=== PATIENT | female | born 1990 | race African-American/Black ===

== ENCOUNTER 2018-05-23 06:25 | Emergency (ER) | payer BC ==
[~2018-05-23] VITALS: Ht 154.9 cm; Wt 60.3 kg
[2018-05-23] MEDS ORDERED: LIDO:MAALOX 1:1 20 ML SINGLE DOSE. ONE (06:47)
[2018-05-23] MEDS ORDERED: FAMOTIDINE 20 MG TABLET. ONE (06:48)
--- NOTE | 2018-05-23 06:52 | PHYS DOC ---
Past Medical History Past Medical History: Asthma Past Surgical History: Alcohol Use: Occasionally Drug Use: None Adult General Chief Complaint Chief Complaint: CHEST PAIN HPI HPI 27-year-old female presenting to the emergency department today with chest pain that is a mild to moderate burning and sharp pain in the substernal region that is nonradiating intermittent. It is worse when she lays down and improved when she sits up. She is not notice it being worse or better with food. No changes with exertion. She denies diabetes high blood pressure smoking or high cholesterol. The patient denies unilateral leg swelling hemoptysis family or personal history of blood clotting disorders. The pt denies recent immobilization or surgery. She does take oral contraception. Review of systems is negative for abdominal pain nausea vomiting. She reports feeling warm but did not take her temperature at that time. All other review of systems is negative unless otherwise noted in history of present illness. ED course: 27-year-old female presenting with chest pain. Vitals are unremarkable. Patient is well-appearing. EKG shows sinus rhythm with a regular rate. ST segments congruent. Not suggestive of ACS. Nonspecific T-wave inversions in the anterior lateral leads. Chest x-ray obtained along with blood work. On reexamination the patient is feeling better after receiving Pepcid and GI cocktail. Plan is to discharge.The patient has been examined and was not found to have an emergency medical condition. The patient was then discharged home in stable condition to follow up with their primary care physician over the next 2-3 days. They were to return if their symptoms worsened or if they were concerned for any reason. They were also instructed to return to the emergency department if they were unable to get the recommended and appropriate follow-up. [id number] discharge instructions and return precautions were given. Patient's questions were answered to their satisfaction. Patient is comfortable with plan. Review of Systems Review of Systems SEE ABOVE. Current Medications Current Medications Current Medications Medications (Trade) Dose Ordered Sig/Ayo Start Time Stop Time Status Last Admin Dose Admin Famotidine (Pepcid) 20 mg STK-MED ONCE 05/23/18 06:48 05/23/18 06:49 DC Info (CONTRAST GIVEN -- Rx MONITORING) 1 each PRN DAILY PRN 05/23/18 08:15 05/23/18 09:07 DC Iohexol (Omnipaque 300 Mg/ml) 90 ml 1X ONCE 05/23/18 08:15 05/23/18 08:16 DC 05/23/18 08:16 90 ML Multi-Ingredient Mouthwash/Gargle (Gi Cocktail) 20 ml STK-MED ONCE 05/23/18 06:47 05/23/18 06:49 DC Allergies Allergies Allergies Coded Allergies Type Severity Reaction Last Updated Verified No Known Drug Allergies 05/23/18 No Physical Exam Physical Exam SEE ABOVE Constitutional: Well developed, well nourished, no acute distress, non-toxic appearance. [] HENT: Normocephalic, atraumatic, bilateral external ears normal, oropharynx moist, no oral exudates, nose normal. [] Eyes: PERRLA, EOMI, conjunctiva normal, no discharge. [] Neck: Normal range of motion, no tenderness, supple, no stridor. [] Cardiovascular:Heart rate regular rhythm, no murmur [] Lungs & Thorax: Bilateral breath sounds clear to auscultation [] Abdomen: Bowel sounds normal, soft, no tenderness, no masses, no pulsatile masses. [] Skin: Warm, dry, no erythema, no rash. [] Back: No tenderness, no CVA tenderness. [] Extremities: No tenderness, no cyanosis, no clubbing, ROM intact, no edema. [] Neurologic: Alert and oriented X 3, normal motor function, normal sensory function, no focal deficits noted. [] Psychologic: Affect normal, judgement normal, mood normal. [] Current Patient Data Vital Signs Vital Signs Date Time Temp Pulse Resp B/P (MAP) Pulse Ox O2 Delivery O2 Flow Rate FiO2 05/23/18 08:36 92 158/63 (94) 99 Room Air 05/23/18 06:26 98.1 16 98.1 Lab Values Laboratory Tests Test 05/23/18 06:34 05/23/18 07:17 White Blood Count 12.6 x10^3/uL (4.0-11.0) H Red Blood Count 4.41 x10^6/uL (3.50-5.40) Hemoglobin 13.5 g/dL (12.0-15.5) Hematocrit 39.7 % (36.0-47.0) Mean Corpuscular Volume 90 fL (79-100) Mean Corpuscular Hemoglobin 31 pg (25-35) Mean Corpuscular Hemoglobin Concent 34 g/dL (31-37) Red Cell Distribution Width 13.2 % (11.5-14.5) Platelet Count 282 x10^3/uL (140-400) Neutrophils (%) (Auto) 87 % (31-73) H Lymphocytes (%) (Auto) 8 % (24-48) L Monocytes (%) (Auto) 5 % (0-9) Eosinophils (%) (Auto) 0 % (0-3) Basophils (%) (Auto) 0 % (0-3) Neutrophils # (Auto) 10.9 x10^3uL (1.8-7.7) H Lymphocytes # (Auto) 1.0 x10^3/uL (1.0-4.8) Monocytes # (Auto) 0.6 x10^3/uL (0.0-1.1) Eosinophils # (Auto) 0.0 x10^3/uL (0.0-0.7) Basophils # (Auto) 0.0 x10^3/uL (0.0-0.2) Segmented Neutrophils % 80 % (35-66) H Band Neutrophils % 13 % (0-9) H Lymphocytes % 5 % (24-48) L Monocytes % 2 % (0-10) Platelet Estimate Adequate (ADEQUATE) D-Dimer (Kaye) 1.32 ug/mlFEU (0.00-0.50) H Sodium Level 136 mmol/L (136-145) Potassium Level 3.2 mmol/L (3.5-5.1) L Chloride Level 97 mmol/L (98-107) L Carbon Dioxide Level 28 mmol/L (21-32) Anion Gap 11 (6-14) Blood Urea Nitrogen 8 mg/dL (7-20) Creatinine 0.9 mg/dL (0.6-1.0) Estimated GFR (Cockcroft-Gault) 75.1 Glucose Level 107 mg/dL (70-99) H Calcium Level 9.2 mg/dL (8.5-10.1) Troponin I Quantitative < 0.017 ng/mL (0.000-0.055) POC Urine HCG, Qualitative Hcg negative (Negative) Laboratory Tests 05/23/18 06:34 Laboratory Tests 05/23/18 06:34 EKG EKG [] Radiology/Procedures Radiology/Procedures [] Course & Med Decision Making Course & Med Decision Making Pertinent Labs and Imaging studies reviewed. (See chart for details) [] Dragon Disclaimer Dragon Disclaimer This electronic medical record was generated, in whole or in part, using a voice recognition dictation system. Departure Departure Impression: Primary Impression: Chest pain Disposition: HOME, SELF-CARE Condition: IMPROVED Patient Instructions: Chest Pain (Nonspecific) Additional Instructions: Thank you for allowing us to participate in your care today. Return to the emergency department you have any new or worsening symptoms, or if you are concerned for any reason. Return to emergency department if you have any new or concerning symptoms including but not limited to fever, chills, nausea, vomiting, intractable pain, any new rashes, chest pain, shortness of air , uncontrolled bleeding, difficulty breathing, and/or vision loss. Follow up with your primary care physician within 1-2 days. Call your Primary Doctor tomorrow and inform them of your visit today. If you do not have a primary care provider we are happy to provide you with a list of our primary care providers contact information. This condition should be evaluated by your primary care physician and any recommended consulting services for continued management within 2 days after discharge. If at any time, you are having difficulty getting into your primary care doctor or a specialist, return to the emergency department. OCTAVIO POPE MD May 23, 2018 06:52
[2018-05-23 06:57] LABS: BASO % 0 % (0-3); EOS % 0 % (0-3); HEMATOCRIT 39.7 % (36.0-47.0); HEMOGLOBIN 13.5 g/dL (12.0-15.5); LYMPH % 8 % (24-48); MEAN CORPUSCULAR HEMOGLOBIN 31 pg (25-35); MEAN CORPUSCULAR HGB CONC 34 g/dL (31-37); MEAN CORPUSCULAR VOLUME 90 fL (79-100); MONO # 0.6 x10^3/uL (0.0-1.1); MONO % 5 % (0-9); NEUT # 10.9 x10^3uL (1.8-7.7); NEUT % 87 % (31-73); PLATELET COUNT 282 x10^3/uL (140-400); RED BLOOD COUNT 4.41 x10^6/uL (3.50-5.40); RED CELL DISTRIBUTION WIDTH 13.2 % (11.5-14.5); WHITE BLOOD COUNT 12.6 x10^3/uL (4.0-11.0)
[2018-05-23] MEDS ORDERED: LIDO:MAALOX 1:1 20 ML SINGLE DOSE. PO PRN (07:00)
[2018-05-23] MEDS ORDERED: FAMOTIDINE 20 MG TABLET. PO ONE (07:00)
[2018-05-23 07:03] LABS: CALCIUM 9.2 mg/dL (8.5-10.1); CREATININE 0.9 mg/dL (0.6-1.0); GFR 75.1; POTASSIUM 3.2 mmol/L (3.5-5.1)
--- NOTE | 2018-05-23 07:22 | EKG ---
[facility] [address] [place] [address] Test Date: 2018-05-23 Test Time: 06:35:32 Pat Name: KYMBERLY MCGOWAN Department: Room: Gender: F Community Service Manager: : 1990 Requested By: OCTAVIO POPE Order Number: [id number] Reading MD: Measurements Intervals [place] Rate: 68 P: ME: QRS: 33 QRSD: 74 T: 17 QT: 408 QTc: 434 Interpretive Statements IRREGULAR RHYTHM, NO P-WAVE FOUND QRS(T) CONTOUR ABNORMALITY CONSIDER ANTEROSEPTAL MYOCARDIAL DAMAGE POSSIBLY ABNORMAL ECG RI6.01 No previous ECG available for comparison
--- NOTE | 2018-05-23 07:45 | RAD ---
CHEST PA LATERAL CLINICAL INDICATION: MID STERNAL CHEST PAIN STARTING LAST PM. COMPARISON: None FINDINGS: Heart is normal in size. Lungs are clear. No pneumothorax or pleural effusion. Visualized bony thorax is within normal limits. IMPRESSION: No acute pulmonary process. Electronically signed by: Carlos Robledo DO (05/23/2018 7:41 AM) [facility]
[2018-05-23] MEDS ORDERED: IOHEXOL 300 MG/ML 100ML VIAL. IV ONE (08:15)
[2018-05-23] MEDS ORDERED: CONTRAST GIVEN. MC PRN (08:15)
[2018-05-23 08:36] VITALS: BP 158/63
--- NOTE | 2018-05-23 08:38 | RAD ---
RS Compliance Statement: One or more of the following individualized dose reduction techniques were utilized for this examination: 1. Automated exposure control 2. Adjustment of the mA and/or kV according to patient size 3. Use of iterative reconstruction technique CT angiography chest with contrast 05/23/2018 8:10 AM INDICATION: Midsternal chest pain COMPARISON: Chest radiograph 05/23/2018 TECHNIQUE: Axial CT images of the chest were obtained after the intravenous administration of 90 mL Omnipaque 300. Coronal and sagittal reformats are provided. Maximum intensity projection images of the thoracic vasculature are provided. FINDINGS: The thyroid gland is normal in appearance. There are no pathologically enlarged axillary, mediastinal or hilar lymph nodes. The heart size is within normal limits. Trace pericardial fluid is present, likely physiologic. Thoracic aorta is normal in course and caliber. There is adequate opacification of the pulmonary arterial system. There there are no filling defects within the pulmonary arterial system to suggest acute or chronic pulmonary embolus. There are no suspicious solid noncalcified pulmonary nodules. There are no pulmonary infiltrates. There are no pleural effusions. No pulmonary vascular congestion or pneumothorax. Arterially enhancing lesion in the medial segment left hepatic lobe measures 9 mm (series 3, image 141). Additional 4 mm hyperenhancing lesion is identified further inferiorly in the medial segment left hepatic lobe. No suspicious osseous lesions are visualized. IMPRESSION: There is no evidence for acute or chronic pulmonary embolism. Arterially enhancing lesions in the left hepatic lobe measure up to 9 mm. Consideration may be given for flash fill hemangioma. Correlate with oral contraceptive use as consideration may be given for hepatic adenomas. Electronically signed by: Stephania Stoll MD (05/23/2018 8:34 AM) [id number]
[2018-05-23 10:10] LABS: % BANDS 13 % (0-9); % LYMPHS 5 % (24-48); % MONOS 2 % (0-10); % SEGS 80 % (35-66); PLT ESTIMATE ADEQUATE (ADEQUATE)
== END 2018-05-23 09:07 | disposition home or self-care (01) ==
LOC: ER 06:25
DX: R07.89 Other chest pain (principal); J45.909 Unspecified asthma, uncomplicated; Z98.890 Other specified postprocedural states
CPT/HCPCS: 36415; 71046; 71275; 80048; 81025; 84484; 85007; 85025; 85379; 93005; 99284; Q9967